=== PATIENT | female | born 1980 | race Caucasian/White ===

== ENCOUNTER 2019-01-07 19:33 | Emergency (ER) | payer OTHER ==
[~2019-01-07] VITALS: Ht 180.3 cm; Wt 82.6 kg
[2019-01-07] MEDS ORDERED: NORVASC2.5 M1 (20:32)
== END 2019-01-08 12:00 | disposition home or self-care (01) ==
LOC: ER 19:33
DX: T43.592A Poisoning by other antipsychotics and neuroleptics, intentional self-harm, initial encounter (principal); R53.81 Other malaise; F41.8 Other specified anxiety disorders; Y92.89 Other specified places as the place of occurrence of the external cause